=== PATIENT | female | born 1960 | race Caucasian/White ===

== ENCOUNTER 2017-09-12 08:36 | Emergency (ER) | payer OTHER ==
[~2017-09-12] VITALS: Ht 167.6 cm; Wt 120.2 kg
[2017-09-12 08:41] VITALS: Ht 167.6 cm; Wt 120.2 kg
[2017-09-12] MEDS ORDERED: ALBUTEROL 0.083% (NEB) 2.5 MG/3 ML AMP HHN STA (09:16)
[2017-09-12] MEDS ORDERED: FLUCONAZOLE 150 MG TAB PO ONE (09:30)
[2017-09-12] MEDS ORDERED: IPRATROPIUM (NEB) 0.5 MG/2.5 ML AMP HHN ONE (09:30)
--- NOTE | 2017-09-12 09:40 | RADRPT ---
PROCEDURE: XR Chest. CLINICAL INDICATION: cough TECHNIQUE: Frontal chest x-ray was obtained. COMPARISON: None. FINDINGS: Heart is not enlarged. Mediastinum is not widened. No hilar masses seen. Lungs are clear of any infi ltrates. There is no effusion or pneumothorax. Surgical anchor is seen in the right humeral head. IMPRESSION: No evidence for active cardiopulmonary disease. .Albert Mcmahan MD, MD Date Time Electronically viewed and signed by .Albert Mcmahan MD, MD on 09/12/2017 09:39 .A/
[2017-09-12] MEDS ORDERED: TRIA15CR55 TOP (11:26)
[2017-09-12] MEDS ORDERED: ACET500C5 PO (11:26)
[2017-09-12] MEDS ORDERED: BENZ100C70 PO (11:26)
[2017-09-12] MEDS ORDERED: AZIT250T94 PO (11:26)
[2017-09-12 11:46] VITALS: BP 125/62; PULSE 105
--- NOTE | 2017-09-12 14:52 | ERD ---
ER Documentation Chief Complaint Chief Complaint Complains of a sore throat and a rash to the buttock HPI 57-year-old female patient with a past medical history of diabetes, Achilles tendinitis, hypertension, hyperlipidemia, psoriasis presents to the ED complaining of a chronic rash that she has had on her back for 2 years due to psoriasis. States that she has not seen a digital archivist. States that she has not seen a digital archivist. Reports that she is taking Humalog, glyburide, lisinopril and atorvastatin. Reports that she also gets some moist rashes under her breasts and below her abdomen. States that she has also had a dry cough for the past 2 days and sore throat. States that she feels like these [employer] fires are making her symptoms worse. States that she has wheezing but denies any shortness of breath, chest pain, fever, dyspnea on exertion, orthopnea, chills, nausea, vomiting, diarrhea, neck stiffness, ear pain. Denies any leg swelling. Denies any recent traveling. ROS All systems reviewed and are negative except as per history of present illness. Medications Home Meds Active Scripts Acetaminophen* (Tylophen*) 500 Mg Capsule, 1 CAP PO Q6H Y for PAIN AND OR ELEVATED TEMP, #20 CAP Prov:YORDAN LOPEZ PA-C 09/12/17 Azithromycin* (Zithromax*) 250 Mg Tablet, 250 MG PO .ZPACK DIRECTED, #6 TAB TAKE 500 MG (2 TABS) THE FIRST DAY THEN 250 MG (1 TAB) DAYS 2-5 Prov:YORDAN LOPEZ PA-C 09/12/17 Benzonatate* (Tessalon Perle*) 100 Mg Capsule, 100 MG PO Q8H Y for COUGH, #20 CAP Prov:YORDAN LOPEZ PA-C 09/12/17 Triamcinolone Acetonide (Triamcinolone Acetonide) 0.1% - 15 Gm Cream.gm., 1 APPLIC TOP BID, #1 TUB Prov:YORDAN LOPEZ PA-C 09/12/17 Allergies Allergies: Coded Allergies: tetracycline (Verified Allergy, Intermediate, Rash, 09/12/17) PMhx/Soc History of Surgery: Yes (bilat ankle, hystorectomy) Anesthesia Reaction: No Hx Neurological Disorder: No Hx Respiratory Disorders: No Hx Cardiac Disorders: No Hx Psychiatric Problems: No Hx Miscellaneous Medical Probl: No Hx Alcohol Use: No Hx Substance Use: No Hx Tobacco Use: No Physical Exam Vitals Vital Signs Date Time Temp Pulse Resp B/P Pulse Ox O2 Delivery O2 Flow Rate FiO2 09/12/17 11:46 105 125/62 09/12/17 10:43 136/70 09/12/17 09:32 80 20 97 21 09/12/17 08:41 98.3 80 20 198/96 97 Physical Exam Const: [id number], well-nourished. In no acute distress. Head: Atraumatic, normocephalic Eyes: Normal Conjunctiva without injection. No purulent discharge. PERRL. EOMI ENT: Normal external ear. Ear canal without erythema. Tympanic membrane pearly george without effusion or bulging. Nasal canal clear with normal turbinates. Moist oropharynx without tonsillar exudates. Non-erythematous pharynx. Uvula midline. No drooling. No trismus. Neck: Full range of motion. No meningismus. No cervical lymphadenopathy. Resp: Inspiratory and expiratory wheezing noted. No rhonchi, rales, or crackles. No accessory muscle use. No retractions. Cardio: Regular rate and rhythm. No murmurs, rubs or gallops. Abd: Soft, non tender, non distended. Normal bowel sounds. No palpable masses. No rebound tenderness. No guarding. Skin: No petechiae or rashes Back: No midline tenderness. No CVA tenderness. Ext: No cyanosis, or edema. Neur: Awake and alert. Psych: Normal Mood and Affect Results 24 hrs Current Medications Medications (Trade) Dose Ordered Sig/Katherin Route PRN Reason Start Time Stop Time Status Last Admin Dose Admin Albuterol (Proventil 0.083% (Neb)) 10 mg ONCE STAT N 09/12/17 09:16 09/12/17 09:18 DC 09/12/17 09:41 Ipratropium Meldrim (Atrovent 0.02% (Neb)) 1 mg ONCE ONCE HHN 09/12/17 09:30 09/12/17 09:33 DC 09/12/17 09:40 Fluconazole (Diflucan) 150 mg ONCE ONCE PO 09/12/17 09:30 09/12/17 09:35 DC 09/12/17 09:53 Procedures/MDM 57-year-old female patient with a past medical history of diabetes, Achilles tendinitis, hypertension, hyperlipidemia presents to the ED complaining of her chronic rash on her back, moist rash below her breasts and below her abdominal area as well as a dry cough and sore throat. Patient's blood pressure is 198/ 96. Patient's blood pressure was elevated (>120/80) but appears stable without evidence of hypertension emergency or urgency. The patient was counseled about the risks of hypertension and urged to pursue outpatient monitoring and therapy within a week with their primary care physician. She is afebrile and nontoxic- appearing. Due to patient's inspiratory and expiratory wheezing, patient was ordered a breathing treatment consisting of 10 mg albuterol, 1 mg Atrovent with improvement of her symptoms. No indication for steroids at this time as patient has diabetes and her breathing has improved with breathing treatment. Patient's pulse oxygenation is 97%. PROCEDURE: XR Chest. CLINICAL INDICATION: cough TECHNIQUE: Frontal chest x-ray was obtained. COMPARISON: None. FINDINGS: Heart is not enlarged. Mediastinum is not widened. No hilar masses seen. Lungs are clear of any infiltrates. There is no effusion or pneumothorax. Surgical anchor is seen in the right humeral head. IMPRESSION: No evidence for active cardiopulmonary disease. This patient presents to the ED with symptoms consistent with a bronchitis with slight wheezing. Patient is afebrile and has normal vital signs. Patient's physical exam include lungs which were clear to auscultation and a normal pulse oximetry. There is a low suspicion for pneumonia, pneumothorax, mononucleosis, pulmonary embolism, epiglottitis, otitis media, otitis externa, viral/strep pharyngitis, sinusitis, peritonsillar abscess, mastoiditis, retropharyngeal abscess, meningitis, sepsis, acute abdomen or other emergent conditions. Fluids , rest, and symptomatic treatment are recommended for the management of patient' s symptoms. Patient likely has psoriasis in her back as well as intertrigo under her breasts and under her abdominal area. Patient was treated here in the ED with 1 dose of 150 mg Diflucan for intertrigo and will be given a prescription for nystatin powder since she has found no relief with clotrimazole cream. Low suspicion for anaphylaxis, scabies, SJS/TEN, TSS, Lyme's Disease, syphilis, RMSF , shingles, disseminated gonorrhea chlamydia, DIC, TTP, ITP, erythema multiforme, sepsis, cellulitis, necrotizing fascitis, gangrene, meningococcemia , allergic contact dermatitis, urticaria, eczema, tinea infection, or other emergent conditions. Educated patient on exercise, healthy eating, diabetes, hypertension. She understood the risks of not having her high blood pressure and diabetes under control and will follow up with her PCP for further management Diagnosis: Intertrigo, Chronic Psoriasis, Bronchitis Discharge medications: Tessalon Perles, Z-Jose Francisco, Triamcinolone cream, Nystatin powder Patient was instructed to return to the ED for any new or worsening symptoms. They should otherwise follow up with the primary care provider within 1-2 days for a referral to see a digital archivist and sr. unix system administrator. The patient's questions were answered at the time of discharge. Patient understood and agreed with discharge management. Departure Diagnosis: Primary Impression: Cough Additional Impressions: Psoriasis Intertrigo Condition: Stable Patient Instructions: Diabetes: Inspecting Your Feet, Diabetes: Shopping for and Preparing Meals, Diabetes: Caring for Your Body, Managing Psoriasis, Diabetes: Getting Started with Exercise, Diabetes: Activity Tips, Diabetes: Meal Planning, Bronchitis, Antiobiotic Treatment (Adult), DIABETES, General Info , Fungal Infection, Skin [General], Hypertension, Established, Out Of Control Referrals: COMMUNITY CLINICS YOU HAVE RECEIVED A MEDICAL SCREENING EXAM AND THE RESULTS INDICATE THAT YOU DO NOT HAVE A CONDITION THAT REQUIRES URGENT TREATMENT IN THE EMERGENCY DEPARTMENT. FURTHER EVALUATION AND TREATMENT OF YOUR CONDITION CAN WAIT UNTIL YOU ARE SEEN IN YOUR DOCTORS OFFICE WITHIN THE NEXT 1-2 DAYS. IT IS YOUR RESPONSIBILITY TO MAKE AN APPOINTMENT FOR FOLOW-UP CARE. IF YOU HAVE A PRIMARY DOCTOR --you should call your primary doctor and schedule an appointment IF YOU DO NOT HAVE A PRIMARY DOCTOR YOU CAN CALL OUR PHYSICIAN REFERRAL HOTLINE AT IF YOU CAN NOT AFFORD TO SEE A PHYSICIAN YOU CAN CHOSE FROM THE FOLLOWING [facility] CLINICS [facility] [address] [facility] [address] [facility]. [facility] [address] [facility] [address] [facility]. [facility] [address] [facility]. [facility] [address] [facility]. [facility] YOU HAVE RECEIVED A MEDICAL SCREENING EXAM AND THE RESULTS INDICATE THAT YOU DO NOT HAVE A CONDITION THAT REQUIRES URGENT TREATMENT IN THE EMERGENCY DEPARTMENT. FURTHER EVALUATION AND TREATMENT OF YOUR CONDITION CAN WAIT UNTIL YOU ARE SEEN IN YOUR DOCTORS OFFICE WITHIN THE NEXT 1-2 DAYS. IT IS YOUR RESPONSIBILITY TO MAKE AN APPOINTMENT FOR FOLOW-UP CARE. IF YOU HAVE A PRIMARY DOCTOR --you should call your primary doctor and schedule and appointment IF YOU DO NOT HAVE A PRIMARY DOCTOR YOU CAN CALL OUR PHYSICIAN REFERRAL HOTLINE AT . IF YOU CAN NOT AFFORD TO SEE A PHYSICIAN YOU CAN CHOSE FROM THE FOLLOWING [facility] INSTITUTIONS: [facility] [address] [place] [address] [facility] [address] [place], [place] [id number] [place] [address] [address] [place] [address] [facility] Additional Instructions: Nystatin powder prescription has been written for you for your infected skin folds in front of the body. Call your primary care doctor TOMORROW for an appointment during the next 2-3 day for a referral to see an sr. unix system administrator and digital archivist. See the doctor sooner or return here if your condition worsens before your appointment time. YORDAN LOPEZ PA-C Sep 12, 2017 14:52
== END 2017-09-12 11:52 | disposition home or self-care (01) ==
LOC: FTE 08:36
DX: R05 Cough (principal); L40.9 Psoriasis, unspecified; L30.4 Erythema intertrigo; I10 Essential (primary) hypertension; E11.9 Type 2 diabetes mellitus without complications
CPT/HCPCS: 71010; 94644; Z7502; Z7610